=== PATIENT | male | born 1990 | race Caucasian/White ===

== ENCOUNTER 2019-02-22 21:40 | Inpatient (IN) ==
[2019-02-22 22:03] VITALS: BMI 33.3
[2019-02-22] MEDS ORDERED: ZOFRAN INJ 4 MG VIAL ONE (22:23)
[2019-02-22] MEDS ORDERED: ZOFRAN INJ 4 MG VIAL IVP ONE (22:23)
[2019-02-22] MEDS ORDERED: NS 1000 ML 1,000 ML ONE (22:23)
[2019-02-22] MEDS ORDERED: NS 1000 ML 1,000 ML IV ONE (22:23)
--- NOTE | 2019-02-22 22:27 | DR.URIAD ---
HPI Time Seen Time Seen by Provider: 02/22/19 22:15 PCP Primary Care Physician: DR. MICHELE HPI Comment HPI Comment: PATIENT IS 28YR OLD WHITE MALE IN THE EMERGENCY ROOM WITH PERISTENT FEVER, NAUSEA, VOMITING AND DIARRHEA AND CHEST PAIN TIMES 3 DAYS. WORSE TONIGHT. PATIENT IS WEAK AND DIARRHEA IS GETTING WORSE. OVER 9 BM TODAY AND 3 SINCE HERE IN ED. ORAL INTAKE IS POOR, NOT HOLDING DOWN FLUID OR FOOD. PATIENTS CONDITION IS GETTING WORSE. NO CONTACT EXPOSURE. PAIN 8/10 IN CHEST SHARP AND BURNING CONSTANT PAIN RADIATING TO ABDOMEN. ALSO DIFFUSE ABDOMINAL CRAMPING NON RADIATING AND INTERMITTENT. FEVER PERSISTENT EVEN WITH MOTRIN AND TYLENOL. DIARRHEA IS WATERY. Complaint Chief Complaint Doctors Comments: FEVER TIMES 3 DAYS WITH NAUSEA, VOMITING DIARRHEA AND CHEST PAIN TIMES 3 DAYS. Chief Complaint:: STATES THAT PT HAS BEEN RUNNING A FEVER SINCE THURSDAY. STATES THAT FEVER HAS BEEN HIGH 103.5. STATES THEY HAVE BEEN ALTERNATING TYLENOL AND IBUPROFEN. STATES HE HAS BEEN HAVING DIARRHEA, NAUSEA, VOMITING, AND PAIN IN HIS CHEST WHEN HE TAKES A DEEP BREATH. Self Treatment fo Chief Complaint: TYLENOL AND IBUPROFEN Reviewed Nurses Notes Reviewed: Yes Source History Provided: Patient and Significant Other Mode of Arrival Mode of Arrival: Ambulatory Timing Onset of Chief Complaint: 02/20/19 Context Recent Treated Infections: None History of Respiratory: None Quality Quality of Cough: Nonproductive Rhinorrhea: None Shortness of Breath: none Associated Signs and Symptoms Other Signs and Symptoms: Abdominal Pain, Cough, Decreased Oral Intake, Decreased Urination, Diarrhea, Myalgias and Vomitting PMH PMH Past Medical History: No Past Surgical History: No Family History History of Family Medical Conditions: No Social History Does patient currently use any type of tobacco product: No Have you used tobacco products in the last 12 months: No Does any household member use tobacco: No Alcohol Use: Occasionally Do you use any recreational Drugs:: No Lives With: Spouse Lives Where: Home infectious screening Have you traveled outside the country in the last 6 months?: No Isolation: Standard ROS Review of Systems Constitutional: See HPI, Fever, Malaise, Weakness, Fatigue and Loss of Appetite; negative Chills Eyes: No Symptoms Reported and See HPI; negative Blurred Vision, Photophobia and Diplopia ENTM: No Symptoms Reported, See HPI and Nose Congestion; negative Ear Pain, Nose Discharge and Throat Pain Respiratoy: No Symptoms Reported, See HPI and Non-Productive Cough; negative Short of Breath and Wheezing Cardiovascular: See HPI and Palpitations; negative Chest Pain and Edema Gastrointestinal/Abdominal: No Symptoms Reported, See HPI, Abdominal Pain, Diarrhea, Nausea and Vomiting; negative Constipation Genitourinary: See HPI and Other (DECREASE URINATION.); negative Dysuria, Frequency and Hematuria Neurological: No Symptoms Reported, See HPI, Weakness and Dizziness; negative Headache Musculoskeletal: See HPI and Muscle Pain; negative Back Pain Integumentary: See HPI and Dryness; negative Change in Color, Rash and Juandice Hematologic/Lymphatic: No Symptoms Reported and See HPI; negative Easy Bleeding, Easy Bruising and Swollen Glands Endocrine: No Symptoms Reported and See HPI; negative Increased Thirst, Increased Urine and Decreased Appetite Psychiatric: No Symptoms Reported and See HPI All Other Systems: Reviewed and Negative PE Vital Signs Vitals: Temperature 101 F Pulse Rate [Left Brachial] 78 Pulse Rate 98 Respiratory Rate 16 Blood Pressure [Right Arm] 104/58 Blood Pressure 110/66 O2 Sat by Pulse Oximetry 94 General Limitations: No Limitations General Appearance: Alert and In No Apparent Distress Head Head Exam: Normal Inspection and Atraumatic Eyes Eye exam: Normal Appearance, PERRL and EOMI; negative Scleral Icterus and Conjunctival Injection ENT ENT Exam: Normal Exam, Normal Oropharynx, Normal External Ear Exam and TM's Normal Bilaterally External Ear Exam: Normal External Inspection; negative Mastoid Tenderness, Pain with Movement and External Tenderness TM/Canal Exam: Bilateral: Normal Nose Exam: Normal Nose Exam; negative Sinus Tenderness, Nasal Deviation and Septal Hematoma Nasal Speculum Exam: Bilateral: Normal Mouth Exam: Normal Inspection Throat Exam: Normal Inspection; negative Tonsillar Erythema, Tonsillomegaly and Tonsillar Exudate Neck Neck Exam: Normal Inspection and Trachea Midline; negative Tenderness and Lymphadenopathy Chest Chest Inspection: Normal Inspection and Symmetric Chest Wall Rise; negative Tenderness Respiratory Respiratory Exam: Normal Lung Sounds Bilat; negative Accessory Muscle Use, Chest Wall Tenderness and Respiratory Distress Respiratory Exam: Bilateral: Rhonchi and Left: Rhonchi Cardiovascular Cardiovascular Exam: Regular Rate, Normal Rhythm and Normal Heart Sounds; negative Systolic Murmur and Diastolic Murmur Abdominal Exam Abdominal Exam: Normal Inspection, Normal Bowel Sounds, Soft and Tenderness Abdominal Tenderness: Diffuse and Moderate Extremeties Extremities Exam: Normal Inspection and Tenderness Back Back Exam: Normal Inspection; negative Tenderness, (R) CVA Tenderness, (L) CVA Tenderness, Paraspinal Tenderness and Vertebral Tenderness Neurologic Neurological Exam: Alert, Oriented X3 and CN II-XII Intact; negative Motor Sensory Deficit Psychiatric Psychiatric Exam: Normal Affect and Normal Mood Skin Skin Exam: Dry MDM Additional Information Additional Information Obtained From: Family Differential Diagnosis Differential Diagnosis: Influenza A, Influenza B (GASTROENTERITIS, CHEST PAIN, GASTRITIS, BOWEL OBSTRUCTION, FLU.) and Pneumonia COURSE Treatment Treatment: SEE ORDERS. NS 1L IV BOLUA, ZVPB.OFRAN, 4MG IV. TORADOL 30MG IV , PEPCID, 20MG IV, LEVAQUIN, 750MG IVPB. Reevaluation 1st: Unchanged 2nd: Improved (TEMP DECREASING.) Consultation Consultation Comments: DISCUSS PATIENT WITH DR. ESPINO. HE WILL ADMIT PATIENT. Education/Counseling Education/Counseling: Patient and Family Educated On: Diagnosis ROR Labs Reviewed Laboratory Results Reviewed?: Yes Result Diagrams: 02/23/19 05:02 02/23/19 05:02 Laboratory: 02/22/19 23:25 Stool - Final WBC 8.0 X10^3/uL (3.6-10.0) 02/23/19 05:02 RBC 4.11 X10^6/uL (4.7-6.0) L 02/23/19 05:02 Hgb 12.9 g/dL (13.5-18.0) L 02/23/19 05:02 Hct 37.1 % (42.0-54.0) L 02/23/19 05:02 MCV 90.4 fL (80.0-100.0) 02/23/19 05:02 MCH 31.4 pg (27.0-34.0) 02/23/19 05:02 MCHC 34.7 g/dL (33.0-35.0) 02/23/19 05:02 RDW 12.4 % (11.6-16.5) 02/23/19 05:02 Plt Count 144 X10^3/uL (150.0-450.0) L 02/23/19 05:02 Plt Count Comment Adequate (ADEQUATE) 02/23/19 05:02 MPV 9.4 fL (7.4-11.0) 02/23/19 05:02 Neut % (Auto) 89.0 % (42.0-75.0) H 02/23/19 05:02 Lymph % (Auto) 6.2 % (21.0-51.0) L 02/23/19 05:02 Sanders % (Auto) 4.4 % (0.0-13.0) 02/23/19 05:02 Eos % (Auto) 0.1 % (0.9-2.9) L 02/23/19 05:02 Baso % (Auto) 0.3 % (0.2-1.0) 02/23/19 05:02 Neut # (Auto) 7.2 x10^3/uL (2.2-4.8) H 02/23/19 05:02 Lymph # (Auto) 0.5 X10^3/uL (1.3-2.9) L 02/23/19 05:02 Sanders # (Auto) 0.4 x10^3/uL (0.3-0.8) 02/23/19 05:02 Eos # (Auto) 0.0 x10^3/uL (0.0-0.2) 02/23/19 05:02 Baso # (Auto) 0.0 X10^3/uL (0.0-0.1) 02/23/19 05:02 Absolute Nucleated RBC 0.0 /100WBC 02/23/19 05:02 Total Counted 100 02/23/19 05:02 Neutrophils % (Manual) 84 % (39-76) H 02/23/19 05:02 Band Neutrophils % 6 % (0-10) 02/23/19 05:02 Lymphocytes % (Manual) 7 % (13-43) L 02/23/19 05:02 Monocytes % (Manual) 3 % (4-9) L 02/23/19 05:02 Plt Morphology Comment Normal (NORMAL) 02/23/19 05:02 RBC Morphology Normal (NORMAL) 02/23/19 05:02 Sample Site Lr 02/23/19 02:08 ABG pH 7.520 (7.35-7.45) H 02/23/19 02:08 ABG pCO2 31.0 mmHg (35.0-45.0) L 02/23/19 02:08 ABG pO2 63.0 mmHg (80.0-100.0) L 02/23/19 02:08 ABG HCO3 25.3 mmol/L (22-26) 02/23/19 02:08 ABG O2 Saturation 94.0 % (90-100) 02/23/19 02:08 ABG Base Excess 2.9 mmol/L (-2.0-2.0) H 02/23/19 02:08 Joselito Test Pos 02/23/19 02:08 A-a Gradient 48.0 mmHg 02/23/19 02:08 FiO2 21.0 02/23/19 02:08 Blood Gas Comments Grant well ae 02/23/19 02:08 Sodium 136 mmol/L (136-145) 02/23/19 05:02 Corrected Sodium 136 mmol/L (136-145) 02/23/19 05:02 Potassium 3.8 mmol/L (3.5-5.1) 02/23/19 05:02 Chloride 100 mmol/L (98-107) 02/23/19 05:02 Carbon Dioxide 26.6 mmol/L (21-32) 02/23/19 05:02 BUN 16 mg/dL (7-18) 02/23/19 05:02 Creatinine 1.76 mg/dL (0.70-1.30) H 02/23/19 05:02 Est GFR (MDRD) Af Amer 60 (>60) 02/23/19 05:02 Est GFR (MDRD) Non-Af 50 (>60) L 02/23/19 05:02 Glucose 118 mg/dL (65-99) H 02/23/19 05:02 Lactic Acid 1.9 mmol/L (0.4-2.0) 02/23/19 02:13 Calcium 7.5 mg/dL (8.5-10.1) L 02/23/19 05:02 Corrected Calcium 8.5 mg/dL (8.5-10.1) 02/23/19 05:02 Total Bilirubin 0.80 mg/dL (0.2-1.0) 02/23/19 05:02 AST 21 Units/L (15-37) 02/23/19 05:02 ALT 26 Units/L (12-78) 02/23/19 05:02 Alkaline Phosphatase 75 Units/L (46-116) 02/23/19 05:02 Creatine Kinase 223 Units/L (39-308) 02/23/19 05:02 Total Protein 6.4 g/dL (6.4-8.2) 02/23/19 05:02 Albumin 2.7 g/dL (3.4-5.0) L 02/23/19 05:02 Globulin 3.7 g/dL (2.5-4.5) 02/23/19 05:02 Albumin/Globulin Ratio 0.7 Ratio (1.1-2.1) L 02/23/19 05:02 Amylase 29 Units/L (25-115) 02/22/19 22:30 Lipase 90 Units/L (73-393) 02/22/19 22:30 Specimen Type Clean catch urine 02/23/19 07:32 Urine Color Dark yellow (YELLOW) 02/23/19 07:32 Urine Appearance Hazy (CLEAR) 02/23/19 07:32 Urine pH 5.0 (5.0 - 8.0) 02/23/19 07:32 Ur Specific Gilliam 1.025 (1.000-1.030) 02/23/19 07:32 Urine Protein 3+ (NEGATIVE) 02/23/19 07:32 Urine Glucose (UA) Negative (NEGATIVE) 02/23/19 07:32 Urine Ketones 1+ (NEGATIVE) 02/23/19 07:32 Urine Occult Blood 1+ (NEGATIVE) 02/23/19 07:32 Urine Nitrite Negative (NEGATIVE) 02/23/19 07:32 Urine Bilirubin Negative (NEGATIVE) 02/23/19 07:32 Urine Urobilinogen Normal (NORMAL) 02/23/19 07:32 Ur Leukocyte Esterase 1+ (NEGATIVE) 02/23/19 07:32 Urine RBC 0-2 /HPF (0-3) 02/23/19 07:32 Urine WBC 0-2 /HPF (0-5) 02/23/19 07:32 Ur Squamous Epith Cells Negative /HPF (NEGATIVE) 02/23/19 07:32 Urine Bacteria Negative /HPF (NEGATIVE) 02/23/19 07:32 Urine Mucus Few /HPF (NEGATIVE) 02/23/19 07:32 Ur Culture Indicated? No/not indicated 02/23/19 07:32 Stool Description 5oz, green, liq 02/22/19 23:25 Stl Occult Blood (IFOB) Negative (NEGATIVE) 02/22/19 23:25 Stool for White Cells Negative (NEGATIVE) 02/22/19 23:25 Stl C. diff Tox B Gene Negative (NEGATIVE) 02/22/19 23:25 Stl C. diff [id number] Negative (NEGATIVE) 02/22/19 23:25 Stool H. pylori Ag Negative (NEGATIVE) 02/22/19 23:25 Cryptosporid parvum Ag Negative (NEGATIVE) 02/22/19 23:25 Giardia lamblia Ag Negative (NEGATIVE) 02/22/19 23:25 Influenza Type A (PCR) Negative (NEGATIVE) 02/23/19 01:15 Influenza Type B (PCR) Negative (NEGATIVE) 02/23/19 01:15 XRAY XRAY Interpreted by: Radiologist XRAY Findings: REPORT NOTED AND DISCUSS WITH PATIENT AND HIS . Opioid Opioid Risk Tool Age (Timoteo box if 16-45): Yes Total: 1 Total Score Risk Category: Low Risk Copyright: Walters LR predicting aberrant behaviors Diagnosis Discharge Problem: Gastroenteritis, Acute dehydration, Acute febrile illness Pneumonia Qualifiers: Pneumonia type: due to unspecified organism Laterality: left Lung location: lower lobe of lung Qualified Code(s): J18.1 - Lobar pneumonia, unspecified organism Diarrhea Qualifiers: Diarrhea type: unspecified type Qualified Code(s): R19.7 - Diarrhea, unspecified Instructions Forms: Excuse From Work
[2019-02-22 22:41] LABS: BASOPHILS % (AUTO) 0.3 % (0.2-1.0); EOSINOPHILS % (AUTO) 0.1 % (0.9-2.9); HEMATOCRIT 41.7 % (42.0-54.0); HEMOGLOBIN 14.8 g/dL (13.5-18.0); LYMPHOCYTES # (AUTO) 0.5 X10^3/uL (1.3-2.9); LYMPHOCYTES % (AUTO) 5.4 % (21.0-51.0); MEAN CORPUSCULAR HEMOGLOBIN 31.3 pg (27.0-34.0); MEAN CORPUSCULAR HGB CONC 35.4 g/dL (33.0-35.0); MEAN CORPUSCULAR VOLUME 88.3 fL (80.0-100.0); MEAN PLATELET VOLUME 8.9 fL (7.4-11.0); MONOCYTES # (AUTO) 0.6 x10^3/uL (0.3-0.8); MONOCYTES % (AUTO) 5.9 % (0.0-13.0); NEUTROPHILS # (AUTO) 8.2 x10^3/uL (2.2-4.8); NEUTROPHILS % (AUTO) 88.3 % (42.0-75.0); PLATELET COUNT 170 X10^3/uL (150.0-450.0); RED BLOOD COUNT 4.72 X10^6/uL (4.7-6.0); RED CELL DISTRIBUTION WIDTH 12.4 % (11.6-16.5); WHITE BLOOD COUNT 9.3 X10^3/uL (3.6-10.0)
[2019-02-22 22:55] LABS: ALANINE AMINOTRANSFERASE 32 Units/L (12-78); ALBUMIN 3.6 g/dL (3.4-5.0); ALKALINE PHOSPHATASE 98 Units/L (46-116); ASPARTATE AMINO TRANSFERASE 31 Units/L (15-37); BLOOD UREA NITROGEN 14 mg/dL (7-18); CALCIUM 8.1 mg/dL (8.5-10.1); CARBON DIOXIDE 27.2 mmol/L (21-32); CHLORIDE 98 mmol/L (98-107); COR NA(FOR HYPERGLY) 137 mmol/L (136-145); CREATININE 1.65 mg/dL (0.70-1.30); SODIUM 137 mmol/L (136-145); TOTAL PROTEIN 6.9 g/dL (6.4-8.2); eGFR NON BLACK RACES 53 (>60)
[2019-02-22 23:29] LABS: AMYLASE 29 Units/L (25-115); LIPASE 90 Units/L (73-393)
[2019-02-22 23:52] LABS: APPEARANCE,URINE CLEAR (CLEAR); BILIRUBIN,URINE NEGATIVE (NEGATIVE); BLOOD/HEMOGLOBIN,URINE 2+ (NEGATIVE); COLOR,URINE YELLOW (YELLOW); GLUCOSE, URINE NEGATIVE (NEGATIVE); KETONES,URINE 1+ (NEGATIVE); LEUKOCYTE ESTERASE ,URINE NEGATIVE (NEGATIVE); NITRITES,URINE NEGATIVE (NEGATIVE); PROTEIN,URINE 3+ (NEGATIVE); UROBILINOGEN,URINE 1+ (NORMAL)
[2019-02-22 23:56] LABS: BACTERIA,URINE NEGATIVE /HPF (NEGATIVE); RBC,URINE 0-2 /HPF (0-3); SQUAMOUS EPITHELIAL CELL,UR NEGATIVE /HPF (NEGATIVE)
[2019-02-23 00:48] LABS: CRYPTOSPORIDIUM PARVUM ANTIGEN NEGATIVE (NEGATIVE); GIARDIA LAMBLIA ANTIGEN NEGATIVE (NEGATIVE)
[2019-02-23] MEDS ORDERED: ZOFRAN INJ 4 MG VIAL IVP ONE (00:53)
[2019-02-23] MEDS ORDERED: LOMOTIL PO ONE (00:53)
[2019-02-23] MEDS ORDERED: BENTYL I.M. INJ 10 MG IM ONE ×2 (00:53→00:57)
[2019-02-23] MEDS ORDERED: ZOFRAN INJ 4 MG VIAL ONE (00:57)
[2019-02-23] MEDS ORDERED: LOMOTIL ONE (00:58)
[2019-02-23] MEDS ORDERED: TORADOL 30 MG VIAL ONE (01:07)
[2019-02-23] MEDS ORDERED: PEPCID 20 MG IV PREMIX* 20 MG/50 ML BAG ONE (01:07)
[2019-02-23] MEDS ORDERED: TORADOL 30 MG VIAL IVP ONE (01:17)
[2019-02-23] MEDS ORDERED: PEPCID 20 MG IV PREMIX* 20 MG/50 ML BAG IV ONE (01:17)
--- NOTE | 2019-02-23 01:41 | RAD ---
Acute abdominal series, 3 images. History: Chest pain, fever, cough, vomiting. Comparison: None Findings: Airspace consolidation is present within the left upper lobe and left lower lobe. Right lung is clear. No sizable pleural effusion or pneumothorax. Bowel gas pattern is nonobstructive. No free air or suspicious calcifications. No acute osseous findings are seen. Conclusion: Left upper and left lower lobe pneumonia. Reported By:
[2019-02-23] MEDS ORDERED: LEVAQUIN PREMIX IV 750 MG 750 MG/150 ML BAG IV ONE ×2 (02:01→02:16)
[2019-02-23] MEDS ORDERED: NS 1000 ML 1,000 ML ONE (02:15)
[2019-02-23 02:22] LABS: ABG ALLEN TEST POS; ABG BASE EXCESS 2.9 mmol/L (-2.0-2.0); ABG HCO3 25.3 mmol/L (22-26)
[2019-02-23] MEDS: NS 1000 ML 1,000 ML IV SCH ×3 (02:25→20:15)
[2019-02-23] MEDS ORDERED: SALINE 3% 15 ML NEB TX ONE (02:26)
[2019-02-23] MEDS ORDERED: SALINE 3% 15 ML NEB TX NEB ONE (02:30)
[2019-02-23 05:20] LABS: BASOPHILS % (AUTO) 0.3 % (0.2-1.0); EOSINOPHILS % (AUTO) 0.1 % (0.9-2.9); HEMATOCRIT 37.1 % (42.0-54.0); HEMOGLOBIN 12.9 g/dL (13.5-18.0); LYMPHOCYTES # (AUTO) 0.5 X10^3/uL (1.3-2.9); LYMPHOCYTES % (AUTO) 6.2 % (21.0-51.0); MEAN CORPUSCULAR HEMOGLOBIN 31.4 pg (27.0-34.0); MEAN CORPUSCULAR HGB CONC 34.7 g/dL (33.0-35.0); MEAN CORPUSCULAR VOLUME 90.4 fL (80.0-100.0); MEAN PLATELET VOLUME 9.4 fL (7.4-11.0); MONOCYTES # (AUTO) 0.4 x10^3/uL (0.3-0.8); MONOCYTES % (AUTO) 4.4 % (0.0-13.0); NEUTROPHILS # (AUTO) 7.2 x10^3/uL (2.2-4.8); PLATELET COUNT 144 X10^3/uL (150.0-450.0); RED BLOOD COUNT 4.11 X10^6/uL (4.7-6.0); RED CELL DISTRIBUTION WIDTH 12.4 % (11.6-16.5)
[2019-02-23] MEDS ORDERED: TYLENOL 325 MG TAB PO ONE (05:32)
[2019-02-23 05:38] LABS: ALBUMIN 2.7 g/dL (3.4-5.0); CALCIUM 7.5 mg/dL (8.5-10.1); CARBON DIOXIDE 26.6 mmol/L (21-32); COR CA(FOR HYPOALB) 8.5 mg/dL (8.5-10.1); CREATININE 1.76 mg/dL (0.70-1.30); TOTAL PROTEIN 6.4 g/dL (6.4-8.2)
[2019-02-23 05:46] LABS: BAND NEUTROPHILS % 6 % (0-10); PLATELET MORPHOLOGY COMMENT NORMAL (NORMAL)
[2019-02-23] MEDS ORDERED: DUONEB 0.5 MG/3 MG NEB SCH (06:00)
[2019-02-23 07:39] LABS: BILIRUBIN,URINE NEGATIVE (NEGATIVE); BLOOD/HEMOGLOBIN,URINE 1+ (NEGATIVE); GLUCOSE, URINE NEGATIVE (NEGATIVE); KETONES,URINE 1+ (NEGATIVE); LEUKOCYTE ESTERASE ,URINE 1+ (NEGATIVE); NITRITES,URINE NEGATIVE (NEGATIVE); PROTEIN,URINE 3+ (NEGATIVE); UROBILINOGEN,URINE NORMAL (NORMAL)
[2019-02-23 07:45] LABS: APPEARANCE,URINE HAZY (CLEAR); BACTERIA,URINE NEGATIVE /HPF (NEGATIVE); COLOR,URINE DARK YELLOW (YELLOW); MUCUS,URINE FEW /HPF (NEGATIVE); RBC,URINE 0-2 /HPF (0-3); SQUAMOUS EPITHELIAL CELL,UR NEGATIVE /HPF (NEGATIVE)
[2019-02-23] MEDS: TORADOL 30 MG VIAL IVP PRN ×3 (08:00→23:34)
[2019-02-23] MEDS ORDERED: ROCEPHIN VIAL 1 GRAM IVP SCH (09:00)
[2019-02-23] MEDS ORDERED: LR 1000 ML IV 1,000 ML IV ONE (09:02)
[2019-02-23] MEDS: DUONEB 0.5 MG/3 MG NEB SCH ×4 (09:13→20:05)
[2019-02-23] MEDS ORDERED: LR 1000 ML IV 1,000 ML ONE (09:34)
[2019-02-23] MEDS: TYLENOL 325 MG TAB PO PRN ×2 (12:32→21:27)
[2019-02-23] MEDS: TUSSIONEX PENNKINETIC SUSP PO PRN ×2 (12:34→23:35)
[2019-02-23] MEDS ORDERED: NS IV NR (13:00)
[2019-02-23] MEDS ORDERED: GENTAMICIN IV NR (13:00)
[2019-02-23] MEDS ORDERED: CLEOCIN 300 MG IV PREMIX 300 MG/50 ML BAG IV ONE ×2 (18:05→23:17)
[2019-02-23] MEDS ORDERED: CLEOCIN 600 MG IV PREMIX 600 MG/50 ML BAG IV ONE ×2 (18:06→23:15)
[2019-02-23] MEDS: CLEOCIN VIAL 600 MG 900 MG in D5W 50 ML IV 50 ML IV SCH ×2 (18:59→23:35)
[2019-02-23] MEDS: ROBITUSSIN DM PO PRN (20:15)
[2019-02-23] MEDS: LEVAQUIN PREMIX IV 500 MG 500 MG/100 ML BAG IV SCH (20:15)
[2019-02-23] MEDS ORDERED: LEVAQUIN PREMIX IV 750 MG 750 MG/150 ML BAG IV SCH (21:00)
[2019-02-24] MEDS ORDERED: CLEOCIN 600 MG IV PREMIX 600 MG/50 ML BAG IV ONE (04:25)
[2019-02-24] MEDS ORDERED: CLEOCIN 300 MG IV PREMIX 300 MG/50 ML BAG IV ONE (04:26)
[2019-02-24] MEDS: CLEOCIN VIAL 600 MG 900 MG in D5W 50 ML IV 50 ML IV SCH ×3 (04:59→22:33)
[2019-02-24] MEDS: NS 1000 ML 1,000 ML IV SCH ×3 (04:59→22:35)
[2019-02-24] MEDS: TORADOL 30 MG VIAL IVP PRN ×3 (05:06→20:05)
[2019-02-24 05:36] LABS: BASOPHILS % (AUTO) 0.3 % (0.2-1.0); HEMATOCRIT 34.1 % (42.0-54.0); HEMOGLOBIN 11.8 g/dL (13.5-18.0); LYMPHOCYTES # (AUTO) 0.6 X10^3/uL (1.3-2.9); MEAN CORPUSCULAR HEMOGLOBIN 31.3 pg (27.0-34.0); MEAN CORPUSCULAR HGB CONC 34.6 g/dL (33.0-35.0); MEAN CORPUSCULAR VOLUME 90.6 fL (80.0-100.0); MEAN PLATELET VOLUME 9.7 fL (7.4-11.0); MONOCYTES # (AUTO) 0.3 x10^3/uL (0.3-0.8); MONOCYTES % (AUTO) 4.8 % (0.0-13.0); NEUTROPHILS # (AUTO) 4.4 x10^3/uL (2.2-4.8); NEUTROPHILS % (AUTO) 83.9 % (42.0-75.0); PLATELET COUNT 146 X10^3/uL (150.0-450.0); RED BLOOD COUNT 3.77 X10^6/uL (4.7-6.0); RED CELL DISTRIBUTION WIDTH 12.7 % (11.6-16.5); WHITE BLOOD COUNT 5.3 X10^3/uL (3.6-10.0)
[2019-02-24 06:01] LABS: ALANINE AMINOTRANSFERASE 22 Units/L (12-78); ALBUMIN 2.2 g/dL (3.4-5.0); ALKALINE PHOSPHATASE 73 Units/L (46-116); ASPARTATE AMINO TRANSFERASE 24 Units/L (15-37); BLOOD UREA NITROGEN 13 mg/dL (7-18); CALCIUM 7.2 mg/dL (8.5-10.1); CARBON DIOXIDE 25.7 mmol/L (21-32); CHLORIDE 103 mmol/L (98-107); COR CA(FOR HYPOALB) 8.6 mg/dL (8.5-10.1); CREATININE 1.58 mg/dL (0.70-1.30); SODIUM 137 mmol/L (136-145); TOTAL PROTEIN 5.8 g/dL (6.4-8.2); eGFR NON BLACK RACES 56 (>60)
[2019-02-24] MEDS ORDERED: MYLICON TAB 80 MG CHEW PO PRN (06:26)
[2019-02-24] MEDS ORDERED: MYLICON TAB 80 MG CHEW PO ONE (06:28)
[2019-02-24] MEDS: ZOFRAN INJ 4 MG VIAL IVP PRN ×3 (06:30→19:04)
[2019-02-24] MEDS: LEVAQUIN PREMIX IV 500 MG 500 MG/100 ML BAG IV SCH ×2 (08:30→21:16)
[2019-02-24] MEDS: TYLENOL 325 MG TAB PO PRN ×2 (08:30→19:04)
[2019-02-24] MEDS: DUONEB 0.5 MG/3 MG NEB SCH ×4 (08:33→20:05)
[2019-02-24] MEDS ORDERED: PHENERGAN INJ 25 MG IM PRN (09:20)
[2019-02-24] MEDS: PEPCID 20 MG IV PREMIX* 20 MG/50 ML BAG IV SCH ×2 (11:20→20:07)
[2019-02-24] MEDS: VSL#3 PO SCH ×2 (13:48→21:16)
[2019-02-24] MEDS ORDERED: MOTRIN TAB 400 MG PO PRN (20:32)
[2019-02-24] MEDS ORDERED: PROTONIX INJ 40 MG VIAL ONE (20:39)
[2019-02-24] MEDS ORDERED: ATIVAN INJ 2 MG VIAL ONE (20:40)
[2019-02-24] MEDS: PROTONIX INJ 40 MG VIAL IVP SCH (21:10)
[2019-02-24] MEDS: ATIVAN INJ 2 MG VIAL IVP PRN (21:10)
[2019-02-24] MEDS: ROBITUSSIN DM PO PRN (22:33)
[2019-02-24] MEDS: TUSSIONEX PENNKINETIC SUSP PO PRN (22:33)
[2019-02-25] MEDS: TORADOL 30 MG VIAL IVP PRN ×3 (01:25→17:21)
[2019-02-25] MEDS: NS 1000 ML 1,000 ML IV SCH ×3 (04:33→20:10)
[2019-02-25 05:20] LABS: BASOPHILS % (AUTO) 0.3 % (0.2-1.0); EOSINOPHILS % (AUTO) 0.4 % (0.9-2.9); HEMATOCRIT 32.6 % (42.0-54.0); HEMOGLOBIN 11.5 g/dL (13.5-18.0); LYMPHOCYTES # (AUTO) 0.6 X10^3/uL (1.3-2.9); MEAN CORPUSCULAR HEMOGLOBIN 31.7 pg (27.0-34.0); MEAN CORPUSCULAR HGB CONC 35.4 g/dL (33.0-35.0); MEAN CORPUSCULAR VOLUME 89.5 fL (80.0-100.0); MEAN PLATELET VOLUME 8.8 fL (7.4-11.0); MONOCYTES # (AUTO) 0.4 x10^3/uL (0.3-0.8); MONOCYTES % (AUTO) 9.4 % (0.0-13.0); NEUTROPHILS # (AUTO) 3.2 x10^3/uL (2.2-4.8); NEUTROPHILS % (AUTO) 74.9 % (42.0-75.0); PLATELET COUNT 161 X10^3/uL (150.0-450.0); RED BLOOD COUNT 3.65 X10^6/uL (4.7-6.0); RED CELL DISTRIBUTION WIDTH 12.6 % (11.6-16.5); WHITE BLOOD COUNT 4.3 X10^3/uL (3.6-10.0)
[2019-02-25] MEDS: XOPENEX 1.25 MG/3 ML NEBULE NEB SCH ×5 (05:20→21:55)
[2019-02-25] MEDS: CLEOCIN VIAL 600 MG 900 MG in D5W 50 ML IV 50 ML IV SCH ×3 (05:20→21:27)
[2019-02-25] MEDS: ATIVAN INJ 2 MG VIAL IVP PRN ×2 (05:46→18:06)
[2019-02-25] MEDS: ZOFRAN INJ 4 MG VIAL IVP PRN (05:47)
[2019-02-25 05:52] LABS: ALANINE AMINOTRANSFERASE 29 Units/L (12-78); ALBUMIN 2.1 g/dL (3.4-5.0); ALKALINE PHOSPHATASE 77 Units/L (46-116); ASPARTATE AMINO TRANSFERASE 36 Units/L (15-37); BLOOD UREA NITROGEN 14 mg/dL (7-18); CALCIUM 7.7 mg/dL (8.5-10.1); CARBON DIOXIDE 26.2 mmol/L (21-32); CHLORIDE 105 mmol/L (98-107); COR CA(FOR HYPOALB) 9.2 mg/dL (8.5-10.1); CREATININE 1.47 mg/dL (0.70-1.30); SODIUM 138 mmol/L (136-145); TOTAL PROTEIN 5.6 g/dL (6.4-8.2); eGFR NON BLACK RACES > 60 (>60)
[2019-02-25] MEDS: TYLENOL 325 MG TAB PO PRN ×2 (06:05→11:19)
--- NOTE | 2019-02-25 08:15 | RAD ---
Chest PA and lateral Indication: Pneumonia Comparison: 02/23/2019 radiograph Findings: Dense left upper lung opacity has increased, with worsening air bronchograms. Patchy left lower lung and developing right lower lung opacities are concerning. Heart size is upper limits of normal for technique. There is no pneumothorax. Left effusion may be developing. Impression: 1. Worsening left upper lung pneumonia. 2. Bibasilar opacities likely reflect developing multifocal pneumonia. Close clinical and imaging follow-up recommended. Reported By:
[2019-02-25] MEDS: LEVAQUIN PREMIX IV 500 MG 500 MG/100 ML BAG IV SCH (08:36)
[2019-02-25] MEDS: VSL#3 PO SCH ×3 (09:28→21:26)
[2019-02-25] MEDS: PROTONIX INJ 40 MG VIAL IVP SCH ×2 (09:28→21:27)
[2019-02-25] MEDS: SOLU-Cortef INJ IVP SCH ×3 (10:03→22:15)
[2019-02-25] MEDS: AVELOX IV 400 MG/250 ML BAG 400 MG/250 ML PIGGYBACK IV SCH (10:32)
[2019-02-25] MEDS ORDERED: Atrovent NEB TX 0.02% NEB SCH (13:00)
[2019-02-25] MEDS ORDERED: NS 1000 ML 1,000 ML IV SCH (13:00)
[2019-02-25 13:08] LABS: ABG BASE EXCESS 0.1 mmol/L (-2.0-2.0); ABG HCO3 23.6 mmol/L (22-26)
[2019-02-25 13:11] LABS: ABG ALLEN TEST POSITIVE
[2019-02-25] MEDS ORDERED: NS 100 ML IV + SPIKE MINIBAG* 100 ML ONE ×2 (14:46→21:02)
[2019-02-25 14:59] LABS: ABG ALLEN TEST POSITIVE; ABG BASE EXCESS 0.1 mmol/L (-2.0-2.0); ABG HCO3 23.6 mmol/L (22-26)
[2019-02-25] MEDS: ZOSYN VIAL 4.5 GRAMS IV SCH ×2 (15:09→22:41)
[2019-02-25] MEDS ORDERED: PULMICORT NEB TX 0.5 MG NEB SCH (21:00)
[2019-02-25] MEDS: TUSSIONEX PENNKINETIC SUSP PO PRN (23:45)
[2019-02-26] MEDS: NS 1000 ML 1,000 ML IV SCH ×4 (02:22→22:50)
[2019-02-26] MEDS ORDERED: NS 100 ML IV + SPIKE MINIBAG* 100 ML ONE ×3 (05:09→20:53)
[2019-02-26] MEDS: SOLU-Cortef INJ IVP SCH ×3 (05:25→21:45)
[2019-02-26] MEDS: CLEOCIN VIAL 600 MG 900 MG in D5W 50 ML IV 50 ML IV SCH ×3 (05:31→21:22)
--- NOTE | 2019-02-26 05:33 | RAD ---
Examination: AP chest History: Pneumonia Comparison reference 02/25/2019 Findings: Stable cardiac size. There is no change in appearance of the previously described bilateral infiltrates, left greater than right. Dense consolidation again noted involving portions of left upper and left lower lobes. There is no evidence for developing pleural effusion or pneumothorax. Impression: No change. Findings remain consistent with multi focal pneumonia. Reported By:
[2019-02-26] MEDS: ROBITUSSIN DM PO PRN (05:47)
[2019-02-26 06:02] LABS: BASOPHILS % (AUTO) 0.2 % (0.2-1.0); HEMOGLOBIN 11.2 g/dL (13.5-18.0); LYMPHOCYTES # (AUTO) 0.7 X10^3/uL (1.3-2.9); LYMPHOCYTES % (AUTO) 13.6 % (21.0-51.0); MEAN CORPUSCULAR HEMOGLOBIN 31.4 pg (27.0-34.0); MEAN CORPUSCULAR HGB CONC 34.9 g/dL (33.0-35.0); MEAN PLATELET VOLUME 9.7 fL (7.4-11.0); MONOCYTES # (AUTO) 0.4 x10^3/uL (0.3-0.8); MONOCYTES % (AUTO) 8.5 % (0.0-13.0); NEUTROPHILS # (AUTO) 3.9 x10^3/uL (2.2-4.8); NEUTROPHILS % (AUTO) 77.7 % (42.0-75.0); PLATELET COUNT 183 X10^3/uL (150.0-450.0); RED BLOOD COUNT 3.56 X10^6/uL (4.7-6.0); RED CELL DISTRIBUTION WIDTH 13.1 % (11.6-16.5)
[2019-02-26 06:05] LABS: ALANINE AMINOTRANSFERASE 46 Units/L (12-78); ALBUMIN 2.1 g/dL (3.4-5.0); ALKALINE PHOSPHATASE 95 Units/L (46-116); ASPARTATE AMINO TRANSFERASE 56 Units/L (15-37); BLOOD UREA NITROGEN 13 mg/dL (7-18); CARBON DIOXIDE 24.5 mmol/L (21-32); CHLORIDE 106 mmol/L (98-107); COR CA(FOR HYPOALB) 9.5 mg/dL (8.5-10.1); COR NA(FOR HYPERGLY) 141 mmol/L (136-145); CREATININE 1.24 mg/dL (0.70-1.30); SODIUM 141 mmol/L (136-145); TOTAL PROTEIN 5.6 g/dL (6.4-8.2); eGFR NON BLACK RACES > 60 (>60)
[2019-02-26] MEDS: ZOSYN VIAL 4.5 GRAMS IV SCH ×3 (06:05→22:02)
[2019-02-26 06:31] LABS: PLATELET MORPHOLOGY COMMENT NORMAL (NORMAL); WHITE BLOOD COUNT 6.1 X10^3/uL (3.6-10.0)
[2019-02-26] MEDS: XOPENEX 1.25 MG/3 ML NEBULE NEB SCH ×4 (08:01→21:58)
[2019-02-26] MEDS: PROTONIX INJ 40 MG VIAL IVP SCH ×2 (08:42→21:21)
[2019-02-26] MEDS: VSL#3 PO SCH ×2 (08:43→21:21)
[2019-02-26] MEDS: AVELOX IV 400 MG/250 ML BAG 400 MG/250 ML PIGGYBACK IV SCH (10:00)
[2019-02-26 20:42] LABS: ABG ALLEN TEST POS; ABG BASE EXCESS 3.2 mmol/L (-2.0-2.0); ABG HCO3 26.9 mmol/L (22-26)
[2019-02-27] MEDS: TUSSIONEX PENNKINETIC SUSP PO PRN ×2 (00:05→23:05)
[2019-02-27] MEDS: NS 1000 ML 1,000 ML IV SCH ×2 (04:04→11:53)
[2019-02-27] MEDS ORDERED: NS 100 ML IV + SPIKE MINIBAG* 100 ML ONE ×3 (04:32→20:39)
[2019-02-27] MEDS: ROBITUSSIN DM PO PRN ×2 (04:35→21:50)
[2019-02-27] MEDS: CLEOCIN VIAL 600 MG 900 MG in D5W 50 ML IV 50 ML IV SCH (05:07)
[2019-02-27] MEDS: SOLU-Cortef INJ IVP SCH (05:14)
[2019-02-27 05:37] LABS: BASOPHILS % (AUTO) 0.3 % (0.2-1.0); EOSINOPHILS % (AUTO) 0.2 % (0.9-2.9); HEMATOCRIT 31.5 % (42.0-54.0); HEMOGLOBIN 10.9 g/dL (13.5-18.0); LYMPHOCYTES # (AUTO) 0.7 X10^3/uL (1.3-2.9); LYMPHOCYTES % (AUTO) 15.8 % (21.0-51.0); MEAN CORPUSCULAR HEMOGLOBIN 31.3 pg (27.0-34.0); MEAN CORPUSCULAR HGB CONC 34.6 g/dL (33.0-35.0); MEAN CORPUSCULAR VOLUME 90.4 fL (80.0-100.0); MEAN PLATELET VOLUME 9.1 fL (7.4-11.0); MONOCYTES # (AUTO) 0.4 x10^3/uL (0.3-0.8); MONOCYTES % (AUTO) 8.6 % (0.0-13.0); NEUTROPHILS # (AUTO) 3.2 x10^3/uL (2.2-4.8); NEUTROPHILS % (AUTO) 75.1 % (42.0-75.0); PLATELET COUNT 210 X10^3/uL (150.0-450.0); RED BLOOD COUNT 3.49 X10^6/uL (4.7-6.0); RED CELL DISTRIBUTION WIDTH 13.2 % (11.6-16.5); WHITE BLOOD COUNT 4.3 X10^3/uL (3.6-10.0)
[2019-02-27 05:57] LABS: ALANINE AMINOTRANSFERASE 105 Units/L (12-78); ALKALINE PHOSPHATASE 93 Units/L (46-116); ASPARTATE AMINO TRANSFERASE 112 Units/L (15-37); BLOOD UREA NITROGEN 11 mg/dL (7-18); CALCIUM 7.4 mg/dL (8.5-10.1); CARBON DIOXIDE 26.9 mmol/L (21-32); CHLORIDE 107 mmol/L (98-107); COR NA(FOR HYPERGLY) 143 mmol/L (136-145); SODIUM 142 mmol/L (136-145); TOTAL PROTEIN 5.2 g/dL (6.4-8.2); eGFR NON BLACK RACES > 60 (>60)
--- NOTE | 2019-02-27 06:00 | RAD ---
Chest, two views Indication: Pneumonia Comparison: 02/26/2019 Findings: Heart is normal in size. Right basilar opacities appear overall improved. Infiltrates within the upper and mid left lung appear essentially unchanged. No significant pleural effusion is identified. No pneumothorax. Impression: Persistent multifocal pneumonia, minimally improved within the right lung base. Reported By:
[2019-02-27] MEDS: ZOSYN VIAL 4.5 GRAMS IV SCH ×3 (06:15→21:40)
[2019-02-27] MEDS: XOPENEX 1.25 MG/3 ML NEBULE NEB SCH ×4 (09:15→20:19)
[2019-02-27] MEDS: VSL#3 PO SCH ×2 (09:43→21:36)
[2019-02-27] MEDS: AVELOX IV 400 MG/250 ML BAG 400 MG/250 ML PIGGYBACK IV SCH (09:43)
[2019-02-27] MEDS: PROTONIX INJ 40 MG VIAL IVP SCH ×2 (09:43→21:30)
[2019-02-27] MEDS: TORADOL 30 MG VIAL IVP PRN (10:03)
[2019-02-27] MEDS ORDERED: K-RIDER 10 MEQ/NS 100 ML 10 MEQ/100 ML BAG IV PRN (10:12)
[2019-02-27] MEDS ORDERED: POTASSIUM CHL 60 MEQ/NS 0.45% 500 ML IV PRN (10:12)
[2019-02-27] MEDS ORDERED: POTASSIUM CHL 40 MEQ/NS 0.45% 500 ML IV PRN (10:12)
[2019-02-27] MEDS ORDERED: KLOR-CON PO PRN (10:12)
[2019-02-27] MEDS ORDERED: MICRO K EXTEN CAP 10 MEQ PO PRN (10:12)
[2019-02-27] MEDS ORDERED: POTASSIUM CHLORIDE LIQ 20 MEQ UDC PO PRN (10:12)
[2019-02-27] MEDS ORDERED: K-DUR TAB 20 MEQ ONE (10:22)
[2019-02-27] MEDS: K-DUR TAB 20 MEQ PO PRN (10:24)
[2019-02-27 11:22] LABS: ABG ALLEN TEST POS; ABG HCO3 27.4 mmol/L (22-26)
[2019-02-27] MEDS ORDERED: NS 100 ML IV 100 ML ONE (14:51)
--- NOTE | 2019-02-27 15:45 | CT ---
HISTORY: Pneumonia, shortness of breath Study: CTA chest Comparison: None Technique: Multiple axial images of the chest were obtained after the administration of IV contrast. 3D reconstructions were performed utilizing radial maximum intensity projection imaging. Dose reduction techniques including Automated Exposure Control (AEC) and adjustment of mA and kV were utilized. Findings: Contrast opacification of the pulmonary arteries is adequate to the level of the segmental branches. No evidence of acute pulmonary emboli. Normal appearance of the heart and pericardium. The aorta appears normal in course and caliber. There are bilateral multifocal infiltrates most prominent in the left upper lobe and left lower lobe suggestive of pneumonia. There are small bilateral pleural effusions. No pneumothorax. Airways are patent. The soft tissues and osseous structures appear intact. The visualized portions of the upper abdomen are grossly unremarkable. IMPRESSION: 1. Bilateral multifocal infiltrates most prominent in left upper and lower lobes compatible with pneumonia. 2. Small bilateral pleural effusions. 3. No acute pulmonary embolism. Reported By:
[2019-02-27] MEDS ORDERED: NS 250 ML IV 250 ML ONE (16:25)
[2019-02-27] MEDS ORDERED: ZITHROMAX INJ 500 MG VIAL ONE (16:25)
[2019-02-27] MEDS: ZITHROMAX INJ 500 MG VIAL 500 MG in NS 250 ML IV 250 ML IV SCH (16:30)
[2019-02-27] MEDS: SOLU-Medrol 40 MG VIAL IVP SCH (21:33)
[2019-02-28] MEDS ORDERED: NS 100 ML IV + SPIKE MINIBAG* 100 ML ONE ×3 (04:44→23:15)
[2019-02-28] MEDS: ZOSYN VIAL 4.5 GRAMS IV SCH ×3 (05:15→23:21)
[2019-02-28 06:04] LABS: BASOPHILS % (AUTO) 0.1 % (0.2-1.0); EOSINOPHILS % (AUTO) 0.1 % (0.9-2.9); HEMATOCRIT 38.8 % (42.0-54.0); HEMOGLOBIN 13.1 g/dL (13.5-18.0); LYMPHOCYTES # (AUTO) 0.7 X10^3/uL (1.3-2.9); MEAN CORPUSCULAR HEMOGLOBIN 30.6 pg (27.0-34.0); MEAN CORPUSCULAR HGB CONC 33.7 g/dL (33.0-35.0); MEAN CORPUSCULAR VOLUME 91.1 fL (80.0-100.0); MEAN PLATELET VOLUME 8.4 fL (7.4-11.0); MONOCYTES # (AUTO) 0.3 x10^3/uL (0.3-0.8); MONOCYTES % (AUTO) 4.9 % (0.0-13.0); NEUTROPHILS # (AUTO) 5.2 x10^3/uL (2.2-4.8); NEUTROPHILS % (AUTO) 83.9 % (42.0-75.0); PLATELET COUNT 374 X10^3/uL (150.0-450.0); RED BLOOD COUNT 4.26 X10^6/uL (4.7-6.0); RED CELL DISTRIBUTION WIDTH 13.1 % (11.6-16.5); WHITE BLOOD COUNT 6.3 X10^3/uL (3.6-10.0)
[2019-02-28 06:25] LABS: ALANINE AMINOTRANSFERASE 179 Units/L (12-78); ALBUMIN 2.6 g/dL (3.4-5.0); ALKALINE PHOSPHATASE 110 Units/L (46-116); ASPARTATE AMINO TRANSFERASE 127 Units/L (15-37); BLOOD UREA NITROGEN 11 mg/dL (7-18); CALCIUM 7.9 mg/dL (8.5-10.1); CARBON DIOXIDE 29.6 mmol/L (21-32); CHLORIDE 104 mmol/L (98-107); COR NA(FOR HYPERGLY) 144 mmol/L (136-145); CREATININE 1.29 mg/dL (0.70-1.30); SODIUM 143 mmol/L (136-145); TOTAL PROTEIN 6.4 g/dL (6.4-8.2); eGFR NON BLACK RACES > 60 (>60)
--- NOTE | 2019-02-28 07:00 | RAD ---
HISTORY: Follow-up pneumonia Study: Chest PA and lateral Comparison: 02/27/2019 plain film and chest CT Findings: The heart is within normal limits in size. The right lung is clear. Perihilar infiltrates are present on the left involving the left upper and left lower lobes most consistent with pneumonia and unchanged from the prior examination. No pleural effusions are identified. The bony thorax is unremarkable. IMPRESSION: No change left perihilar upper and lower lobe infiltrates Reported By:
[2019-02-28] MEDS: ROBITUSSIN DM PO PRN ×2 (07:30→21:10)
[2019-02-28] MEDS: XOPENEX 1.25 MG/3 ML NEBULE NEB SCH ×4 (08:28→20:08)
[2019-02-28] MEDS: PROTONIX INJ 40 MG VIAL IVP SCH ×2 (09:32→20:43)
[2019-02-28] MEDS: AVELOX IV 400 MG/250 ML BAG 400 MG/250 ML PIGGYBACK IV SCH (09:32)
[2019-02-28] MEDS: ZITHROMAX INJ 500 MG VIAL 500 MG in NS 250 ML IV 250 ML IV SCH (09:32)
[2019-02-28] MEDS: VSL#3 PO SCH ×2 (09:32→20:44)
[2019-02-28] MEDS: K-DUR TAB 20 MEQ PO PRN (09:33)
[2019-02-28] MEDS: SOLU-Medrol 40 MG VIAL IVP SCH ×2 (09:33→20:43)
[2019-02-28 10:54] LABS: ABG BASE EXCESS 5.4 mmol/L (-2.0-2.0)
[2019-02-28 10:55] LABS: ABG ALLEN TEST POS
[2019-02-28] MEDS: MUCOMYST 20% 200 MG/ML NEB SCH ×2 (16:20→20:08)
[2019-02-28] MEDS: NS 1000 ML 1,000 ML IV SCH ×2 (17:32→19:47)
[2019-02-28] MEDS: PULMICORT NEB TX 0.5 MG NEB SCH (20:08)
[2019-02-28] MEDS: TUSSIONEX PENNKINETIC SUSP PO PRN (21:10)
[2019-03-01] MEDS: NS 1000 ML 1,000 ML IV SCH ×3 (02:48→20:55)
[2019-03-01 04:46] LABS: ABG BASE EXCESS 6.4 mmol/L (-2.0-2.0)
[2019-03-01 04:47] LABS: ABG ALLEN TEST POS; ABG HCO3 30.5 mmol/L (22-26)
[2019-03-01] MEDS ORDERED: NS 100 ML IV + SPIKE MINIBAG* 100 ML ONE (05:23)
[2019-03-01] MEDS: ZOSYN VIAL 4.5 GRAMS IV SCH (05:37)
[2019-03-01 05:50] LABS: BASOPHILS % (AUTO) 0.3 % (0.2-1.0); EOSINOPHILS % (AUTO) 0.1 % (0.9-2.9); HEMATOCRIT 36.9 % (42.0-54.0); HEMOGLOBIN 12.7 g/dL (13.5-18.0); LYMPHOCYTES % (AUTO) 9.7 % (21.0-51.0); MEAN CORPUSCULAR HGB CONC 34.4 g/dL (33.0-35.0); MEAN CORPUSCULAR VOLUME 90.2 fL (80.0-100.0); MEAN PLATELET VOLUME 8.7 fL (7.4-11.0); MONOCYTES # (AUTO) 0.5 x10^3/uL (0.3-0.8); MONOCYTES % (AUTO) 4.7 % (0.0-13.0); NEUTROPHILS # (AUTO) 8.9 x10^3/uL (2.2-4.8); NEUTROPHILS % (AUTO) 85.2 % (42.0-75.0); PLATELET COUNT 325 X10^3/uL (150.0-450.0); RED CELL DISTRIBUTION WIDTH 13.1 % (11.6-16.5); WHITE BLOOD COUNT 10.5 X10^3/uL (3.6-10.0)
[2019-03-01 05:57] LABS: ALANINE AMINOTRANSFERASE 152 Units/L (12-78); ALBUMIN 2.6 g/dL (3.4-5.0); ALKALINE PHOSPHATASE 94 Units/L (46-116); ASPARTATE AMINO TRANSFERASE 79 Units/L (15-37); BLOOD UREA NITROGEN 13 mg/dL (7-18); CALCIUM 7.8 mg/dL (8.5-10.1); CARBON DIOXIDE 28.3 mmol/L (21-32); CHLORIDE 103 mmol/L (98-107); COR CA(FOR HYPOALB) 8.9 mg/dL (8.5-10.1); COR NA(FOR HYPERGLY) 141 mmol/L (136-145); CREATININE 1.14 mg/dL (0.70-1.30); SODIUM 140 mmol/L (136-145); TOTAL PROTEIN 5.9 g/dL (6.4-8.2); eGFR NON BLACK RACES > 60 (>60)
--- NOTE | 2019-03-01 06:19 | RAD ---
HISTORY: Follow-up pneumonia Study: Chest AP portable Comparison: 02/28/2019 Findings: The heart is within normal limits in size. The right lung is clear. Left upper and left lower lobe infiltrates are unchanged. No pleural effusions are identified. The bony thorax is unremarkable. IMPRESSION: No change left lung infiltrates Reported By:
[2019-03-01] MEDS: MUCOMYST 20% 200 MG/ML NEB SCH ×4 (08:13→20:35)
[2019-03-01] MEDS: PULMICORT NEB TX 0.5 MG NEB SCH ×2 (08:13→20:36)
[2019-03-01] MEDS: XOPENEX 1.25 MG/3 ML NEBULE NEB SCH ×4 (08:13→20:36)
[2019-03-01] MEDS: AVELOX IV 400 MG/250 ML BAG 400 MG/250 ML PIGGYBACK IV SCH (09:32)
[2019-03-01] MEDS: VSL#3 PO SCH ×2 (09:32→20:55)
[2019-03-01] MEDS ORDERED: CORTEF ONE ×2 (10:17→19:14)
[2019-03-01] MEDS: PROTONIX TAB 40 MG PO SCH (10:20)
[2019-03-01] MEDS: CORTEF PO SCH ×2 (10:20→20:55)
[2019-03-01] MEDS: ZITHROMAX TAB 250 MG PO SCH (10:20)
[2019-03-02] MEDS: NS 1000 ML 1,000 ML IV SCH (05:05)
[2019-03-02 06:45] LABS: BASOPHILS % (AUTO) 0.1 % (0.2-1.0); EOSINOPHILS # (AUTO) 0.1 x10^3/uL (0.0-0.2); EOSINOPHILS % (AUTO) 0.9 % (0.9-2.9); HEMATOCRIT 36.4 % (42.0-54.0); HEMOGLOBIN 12.6 g/dL (13.5-18.0); LYMPHOCYTES % (AUTO) 19.5 % (21.0-51.0); MEAN CORPUSCULAR HEMOGLOBIN 31.1 pg (27.0-34.0); MEAN CORPUSCULAR HGB CONC 34.6 g/dL (33.0-35.0); MEAN CORPUSCULAR VOLUME 89.9 fL (80.0-100.0); MEAN PLATELET VOLUME 7.5 fL (7.4-11.0); MONOCYTES # (AUTO) 0.7 x10^3/uL (0.3-0.8); NEUTROPHILS # (AUTO) 7.3 x10^3/uL (2.2-4.8); NEUTROPHILS % (AUTO) 72.5 % (42.0-75.0); PLATELET COUNT 349 X10^3/uL (150.0-450.0); RED BLOOD COUNT 4.05 X10^6/uL (4.7-6.0); RED CELL DISTRIBUTION WIDTH 13.1 % (11.6-16.5); WHITE BLOOD COUNT 10.1 X10^3/uL (3.6-10.0)
[2019-03-02 06:50] LABS: ALANINE AMINOTRANSFERASE 140 Units/L (12-78); ALBUMIN 2.5 g/dL (3.4-5.0); ALKALINE PHOSPHATASE 89 Units/L (46-116); ASPARTATE AMINO TRANSFERASE 70 Units/L (15-37); BLOOD UREA NITROGEN 13 mg/dL (7-18); CALCIUM 7.5 mg/dL (8.5-10.1); CARBON DIOXIDE 29.7 mmol/L (21-32); CHLORIDE 104 mmol/L (98-107); COR CA(FOR HYPOALB) 8.7 mg/dL (8.5-10.1); CREATININE 1.07 mg/dL (0.70-1.30); SODIUM 142 mmol/L (136-145); TOTAL PROTEIN 5.5 g/dL (6.4-8.2); eGFR NON BLACK RACES > 60 (>60)
[2019-03-02] MEDS ORDERED: CORTEF ONE (08:23)
[2019-03-02] MEDS: AVELOX IV 400 MG/250 ML BAG 400 MG/250 ML PIGGYBACK IV SCH (08:46)
[2019-03-02] MEDS: ZITHROMAX TAB 250 MG PO SCH (08:48)
[2019-03-02] MEDS: PROTONIX TAB 40 MG PO SCH (08:48)
[2019-03-02] MEDS: VSL#3 PO SCH (08:48)
[2019-03-02] MEDS: CORTEF PO SCH (08:49)
[2019-03-02] MEDS: MUCOMYST 20% 200 MG/ML NEB SCH ×2 (09:13→13:54)
[2019-03-02] MEDS: PULMICORT NEB TX 0.5 MG NEB SCH (09:13)
[2019-03-02] MEDS: XOPENEX 1.25 MG/3 ML NEBULE NEB SCH ×2 (09:13→13:54)
--- NOTE | 2019-03-02 14:20 | US ---
History: Elevated liver function tests Study: Ultrasound of the right upper quadrant of the abdomen Findings: The right lobe of the liver measures 11.55 cm length without focal mass. There is appropriate flow in the portal and in the hepatic veins. There is no aortic aneurysm. The gallbladder is normal in size without wall thickening or stone or sludge. The common hepatic duct measures 3 mm diameter. The right kidney measures 10.6 cm sagittal length with cortical thickness of 1.71 cm. There is no hydronephrosis or renal mass. No free fluid is demonstrated. The visualized pancreas is unremarkable. Impression: Negative Reported By:
[2019-03-02 14:36] VITALS: BP 134/76
[2019-03-03] MEDS ORDERED: PATIENT'S HOME MEDICATION PO SCH (09:00)
== END 2019-03-02 16:35 | disposition home or self-care (01) | DRG 195 ==
LOC: ER 21:46 → ICU 21:46 → OBSVTOIN 02-23 02:41 → ICU 02-23 03:05 → MED/SURG 03-01 10:48
PROVIDERS: ADMIT Obstetrics & Gynecology Obstetrics; ATTEND Obstetrics & Gynecology Obstetrics
DX: R19.7 Diarrhea, unspecified; E86.0 Dehydration; R07.89 Other chest pain; J18.8 Other pneumonia, unspecified organism; R11.2 Nausea with vomiting, unspecified; F41.8 Other specified anxiety disorders; K52.89 Other specified noninfective gastroenteritis and colitis
CPT/HCPCS: 36415; 36600; 71010; 71020; 71045; 71046; 71275; 74022; 76705; 80053; 81001; 82150; 82270; 82550; 82803; 83605; 83630; 83690; 83735; 85025; 87040; 87045; 87070; 87205; 87328; 87329; 87338; 87427; 87449; 87493; 87502; 87541; 87798; 87899; 94640; 94660; 94669; 96365; 96367; 96372; 96374; 96375; 97161; 99231; 99284; A4216; A4222; A4618; A7030; C9113; Q0144; S0028; S0077; J0456; J0500; J0696; J1580; J1720; J1885; J1956; J2060; J2280; J2405; J2543; J2550; J2920; J3480; J3490; J7030; J7050; J7060; J7120; J7620; J7626